=== PATIENT | female | born 1940 | race Caucasian/White ===

== ENCOUNTER 2018-04-25 02:44 | Emergency (ER) | payer MEDICARE, OTHER ==
[~2018-04-25] VITALS: Ht 162.6 cm; Wt 71.7 kg
[2018-04-25 02:48] VITALS: Ht 162.6 cm; Wt 71.7 kg
[2018-04-25] MEDS ORDERED: HYZAAR 50-12.51 TAB PO (02:50)
[2018-04-25] MEDS ORDERED: SYNTHROID50 MCG PO (02:50)
[2018-04-25] MEDS ORDERED: FISH OIL 1,0001 CA1 PO (02:51)
[2018-04-25] MEDS ORDERED: PROTONIX40 MG PO (02:51)
[2018-04-25] MEDS ORDERED: LIPITOR20 MG PO (02:51)
[2018-04-25] MEDS ORDERED: BAYER CHEWABLE81 MG PO (02:52)
[2018-04-25] MEDS ORDERED: ZANAFLEX4 MG PO (02:54)
[2018-04-25] MEDS ORDERED: VOLTAREN100 MG PO (02:55)
[2018-04-25 03:13] LABS: BASOPHILS 0.2 % (0-2); EOSINOPHILS 1.8 % (0-7); HEMATOCRIT 39.5 % (36.0-48.0); HEMOGLOBIN 13.5 g/dL (12-16); IMMATURE GRANULOCYTES 0.6 % (0-5); MCH 30.5 pg (26.0-34.0); MCHC 34.2 g/dL (31.0-37.0); MCV 89.4 fL (80.0-100.0); MEAN PLATELET VOLUME 10.4 fL (7.4-10.4); MONOCYTES 6.2 % (2-11); NEUTROPHILS 63.2 % (40-80); PLATELET COUNT 231 10x3/uL (130-400); RBC 4.42 10x6/uL (4.00-5.40); WBC 8.6 10x3/uL (4.8-10.8)
[2018-04-25 03:26] LABS: ALBUMIN 3.3 g/dL (3.4-5.0); ANION GAP 9.8 mmol/L (8-16); BILIRUBIN - TOTAL 0.42 mg/dL (0.2-1.3); CALCIUM 8.8 mg/dL (8.5-10.1); CREATININE - SERUM 0.9 mg/dL (0.6-1.3); POTASSIUM - SERUM 3.8 mmol/L (3.5-5.1); PROTEIN - SERUM 7.4 g/dL (6.4-8.2)
[2018-04-25 04:45] VITALS: BP 132/79
== END 2018-04-25 04:44 | disposition home or self-care (01) ==
LOC: D.ER 02:44
PROVIDERS: Family Medicine
DX: G43.909 Migraine, unspecified, not intractable, without status migrainosus (principal); I10 Essential (primary) hypertension

== ENCOUNTER → 2018-07-07 16:46 | Outpatient (CLI) | payer MEDICARE, OTHER ==
[~2018-07-07 16:46] MED LIST: BAYER CHEWABLE81 MG PO; FISH OIL 1,0001 CA1 PO; HYZAAR 50-12.51 TAB PO; LIPITOR20 MG PO; PROTONIX40 MG PO; SYNTHROID50 MCG PO; VOLTAREN100 MG PO; ZANAFLEX4 MG PO
== END | disposition home or self-care (01) ==
LOC: D.MAMMO 10:45
DX: Z12.31 Encounter for screening mammogram for malignant neoplasm of breast (principal)

== ENCOUNTER 2018-08-19 07:43 | Day surgery (SDC) | payer MEDICARE, OTHER ==
[~2018-08-19] VITALS: Ht 160 cm; Wt 72.6 kg
--- NOTE | ~2018-08-19 | OP ---
PATIENT NAME: KIRAN ALBARADO V MEDICAL RECORD: [id number] :40 LOCATION:D.OPS ADMISSION DATE: SURGEON: ELÍAS SAGE MD DATE OF OPERATION: 08/19/2018 PREOPERATIVE DIAGNOSES: 1. Headaches. 2. Hypertension. 3. Hypercholesterolemia. POSTOPERATIVE DIAGNOSES: 1. Headaches. 2. Hypertension. 3. Hypercholesterolemia. PROCEDURE: Left temporal artery biopsy. SURGEON: Elías Sage MD REPORT OF PROCEDURE: The patient's left face was prepped and draped in sterile fashion. A longitudinal incision was made just anterior to the ear. Electrocautery was used to dissect through the subcutaneous tissues. We dissected out a tubular pulsatile structure consistent with the temporal artery. This branch during our dissection and the 3 branches were all tied off with 3-0 silk ties. We then ligated the vessel in between these ligatures and measured it out to 2.2 cm in length. This was then sent off for permanent specimen. The wound was irrigated out with normal saline and care was taken to assure there was no sign of any bleeding. Then, 5 mL of 1% lidocaine with epinephrine was infused into the surrounding tissues. The subcutaneous tissues were then reapproximated with interrupted 3-0 Vicryl and the skin was closed with running subcutaneous 5-0 Monocryl. The wound was then dressed appropriately. COMPLICATIONS: None. CONDITION: Stable. ANESTHESIA: General endotracheal and local. BLOOD LOSS: Minimal. TRANSINT:[id number] Voice Confirmation ID: [id number] DOCUMENT ID: [id number] CC: Janet Rodgers, fax not found ELÍAS SAGE MD CC: [id number] DICTATION DATE: 08/19/186 BOX LIDDER: 08/19/18 1231 [facility] 08/19/18 [address] [place] [address]
[2018-08-19 08:02] LABS: BASOPHILS 0.1 % (0-2); EOSINOPHILS 1.1 % (0-7); HEMOGLOBIN 12.4 g/dL (12-16); IMMATURE GRANULOCYTES 0.9 % (0-5); LYMPHOCYTES 33.4 % (15-50); MCHC 32.6 g/dL (31.0-37.0); MCV 88.8 fL (80.0-100.0); MEAN PLATELET VOLUME 9.7 fL (7.4-10.4); MONOCYTES 6.9 % (2-11); NEUTROPHILS 57.6 % (40-80); RBC 4.28 10x6/uL (4.00-5.40); RDW 13.5 % (11.5-14.5); WBC 12.2 10x3/uL (4.8-10.8)
[2018-08-19 08:19] LABS: PLATELET COUNT 347 10x3/uL (130-400)
[2018-08-19 08:44] LABS: ANION GAP 13.4 mmol/L (8-16); CALCIUM 8.9 mg/dL (8.5-10.1); CARBON DIOXIDE 30.2 mmol/L (21.0-32.0); CREATININE - SERUM 0.8 mg/dL (0.6-1.3); POTASSIUM - SERUM 3.6 mmol/L (3.5-5.1)
[2018-08-19] MEDS ORDERED: PREDNISONE20 MG PO (09:34)
[2018-08-19 09:44] VITALS: BP 136/64; Ht 160 cm; Wt 72.6 kg
[2018-08-19] MEDS ORDERED: NORCO 10-325 TA1 TAB PO (12:11)
== END 2018-08-19 13:51 | disposition home or self-care (01) ==
LOC: D.OPS 07:43
PROVIDERS: Surgery
DX: M31.6 Other giant cell arteritis (principal); I10 Essential (primary) hypertension; E78.00 Pure hypercholesterolemia, unspecified; Z01.812 Encounter for preprocedural laboratory examination

== ENCOUNTER → 2018-11-30 13:16 | Outpatient (CLI) | payer MEDICARE, BC ==
[2018-08-19 09:44] VITALS: BMI 28.4
[~2018-11-30 13:16] MED LIST changes: +NORCO 10-325 TA1 TAB PO; +PREDNISONE20 MG PO
== END | disposition home or self-care (01) ==
LOC: D.CT 13:00
PROVIDERS: ATTEND Family Medicine
DX: R93.89 Abnormal findings on diagnostic imaging of other specified body structures (principal)

== ENCOUNTER 2020-10-28 08:00 | Outpatient (CLI) | payer MEDICARE, BC ==
[2020-08-29 13:24] VITALS: BMI 28.4
[~2020-10-28 08:00] MED LIST changes: -HYZAAR 50-12.51 TAB PO; +LOSARTAN-HCTZ1 EAC1 PO; +NORVASC5 MG PO
== END 2020-10-28 08:01 | disposition home or self-care (01) ==
LOC: D.MAMMO 08:00
PROVIDERS: ATTEND Nurse Practitioner
DX: Z12.31 Encounter for screening mammogram for malignant neoplasm of breast (principal)

== ENCOUNTER → 2020-10-31 08:42 | Outpatient (CLI) | payer MEDICARE, BC ==
[2020-08-29 13:24] VITALS: BMI 28.4
== END | disposition home or self-care (01) ==
LOC: D.NM 08:42
PROVIDERS: ATTEND Nurse Practitioner
DX: R10.11 Right upper quadrant pain (principal)

== ENCOUNTER 2020-12-13 07:02 | Day surgery (SDC) | payer MEDICARE, BC ==
[~2020-12-13] VITALS: Ht 162.6 cm; Wt 70.0 kg
--- NOTE | ~2020-12-13 | OP ---
PATIENT NAME: KIRAN ALBARADO V MEDICAL RECORD: [id number] :40 LOCATION:D.OPS ADMISSION DATE: SURGEON: ALEJANDRO SAGE MD DATE OF OPERATION: 12/13/2020 PREOPERATIVE DIAGNOSES: 1. Biliary dyskinesia. 2. Hypertension. 3. Hypercholesterolemia. POSTOPERATIVE DIAGNOSES: 1. Biliary dyskinesia. 2. Hypertension. 3. Hypercholesterolemia. PROCEDURE: Laparoscopic cholecystectomy. SURGEON: Alejandro Sage MD DESCRIPTION OF PROCEDURE: The patient's abdomen was prepped and draped in sterile fashion. A cutdown was made on the superior aspect of the umbilicus, 0 Vicryls were placed on the fascia bilaterally and the fascia was incised with a 15-blade. I then bluntly entered the peritoneal cavity and placed a 12-mm Ariana port. Under direct visualization, a 5-mm trocar was placed in the epigastrium and 2 more 5-mm trocars were placed in the right subcostal region. The gallbladder was grasped and elevated. There was some chronic fatty adhesions present surrounding the gallbladder and these were taken down with electrocautery and blunt dissection. We eventually dissected out the cystic artery and cystic duct and had a critical view of safety. These structures were clipped proximally and distally and ligated in standard fashion. The gallbladder was then taken off the liver bed using electrocautery and placed into the right upper quadrant. Any bleeding from the liver bed was then treated with electrocautery. At this point, the ports and insufflation were then removed and the gallbladder was taken out through the umbilicus. The umbilical fascia was closed with interrupted 0 Vicryls times 3. The wounds were then irrigated out with normal saline and infused with 10 mL of 0.25% Marcaine with epinephrine. The skin incisions were all closed with subcutaneous 5-0 Monocryl and dressed appropriately. COMPLICATIONS: None. CONDITION: Stable. ANESTHESIA: General endotracheal and local. BLOOD LOSS: Minimal. TRANSINT:[id number] Voice Confirmation ID: [id number] DOCUMENT ID: [id number] OPERATIVE REPORT [id number] KIRAN ALBARADO V ALEJANDRO SAGE MD CC: CARLTON DUKES APRN [id number] DICTATION DATE: 12/13/20 1140 [employer] [employer] STICKS: 12/13/202052 [facility] 12/13/20 [facility] [address] [place] [address]
[2020-12-13 07:30] LABS: BASOPHILS 0.6 % (0-2); EOSINOPHILS 3.6 % (0-7); HEMATOCRIT 39.3 % (36.0-48.0); HEMOGLOBIN 12.7 g/dL (12-16); IMMATURE GRANULOCYTES 0.2 % (0-5); LYMPHOCYTE ABS# 1.28 10x3/uL (1.18-3.74); LYMPHOCYTES 27.2 % (15-50); MCH 29.2 pg (26.0-34.0); MCHC 32.3 g/dL (31.0-37.0); MCV 90.3 fL (80.0-100.0); MEAN PLATELET VOLUME 11.3 fL (7.4-10.4); MONOCYTES 8.9 % (2-11); NEUTROPHILS 59.5 % (40-80); RBC 4.35 10x6/uL (4.00-5.40); WBC 4.7 10x3/uL (4.8-10.8)
[2020-12-13 07:39] LABS: ANION GAP 11.6 mmol/L (8-16); CALCIUM 9.4 mg/dL (8.5-10.1); CARBON DIOXIDE 29.1 mmol/L (21.0-32.0); CREATININE - SERUM 0.8 mg/dL (0.6-1.3); POTASSIUM - SERUM 3.7 mmol/L (3.5-5.1)
[2020-12-13 07:58] LABS: PLATELET COUNT 249 10x3/uL (130-400)
[2020-12-13 08:26] VITALS: BP 118/60; Ht 162.6 cm; Wt 70.0 kg
[2020-12-13] MEDS ORDERED: HYDROCODON-ACE1 EAC7 PO (11:32)
--- NOTE | 2020-12-13 13:54 | NUR ---
1330 VOIDED X 1 1340 IV REMOVED AND PRESSURE HELD 1350 D/C HOME
== END 2020-12-13 13:50 | disposition home or self-care (01) ==
LOC: D.OPS 07:02
PROVIDERS: Anesthesiology; ATTEND Surgery
DX: K82.8 Other specified diseases of gallbladder (principal); I10 Essential (primary) hypertension; E78.00 Pure hypercholesterolemia, unspecified

== ENCOUNTER → 2021-01-31 08:54 | Outpatient (CLI) | payer MEDICARE, BC ==
[2020-12-13 08:26] VITALS: BMI 26.5
[~2021-01-31 08:54] MED LIST changes: +HYDROCODON-ACE1 EAC7 PO
== END | disposition home or self-care (01) ==
LOC: D.US 08:54
PROVIDERS: ATTEND Nurse Practitioner
DX: M79.605 Pain in left leg (principal)